=== PATIENT | female | born 2000 | race Caucasian/White ===

== ENCOUNTER 2022-02-28 16:52 | Emergency (ER) | payer OTHER ==
[~2022-02-28] VITALS: Ht 157.5 cm; Wt 52.3 kg
[2022-02-28] MEDS ORDERED: AMOX/K CLAV875 M1 PO (18:39)
[2022-02-28 18:46] VITALS: BP 117/78
== END 2022-02-28 18:52 | disposition home or self-care (01) | DRG 605 ==
LOC: ED 16:52
DX: S51.052A Open bite, left elbow, initial encounter (principal); W55.01XA Bitten by cat, initial encounter; Y92.89 Other specified places as the place of occurrence of the external cause; Y99.0 Civilian activity done for income or pay